=== PATIENT | male | born 1960 | race Caucasian/White ===

== ENCOUNTER 2025-08-11 22:29 | Inpatient (IN) | payer BC, SELFPAY ==
[2025-08-11 22:30] VITALS: BP 132/64; PULSE 68; RESP 18; TEMP 36.1; O2SAT 99; BMI 28.7
--- NOTE | 2025-08-11 23:04 | CT_ITS ---
PROCEDURE: ABDOMEN/PELVIS W IV CONT ONLY 08/11/2025 REASON FOR EXAM: ABD PAIN TECHNIQUE: Procedure Code: [id number] Modality: CT Procedure: ABDOMEN/PELVIS W IV CONT ONLY Coronal and Sagittal reconstruction series were provided. CONTRAST: VOLUME: mL One or more dose reduction techniques were used (e.g., Automated exposure control, adjustment of the mA and/or kV according to patient size, use of iterative reconstruction technique. FINDINGS: The visualized lung bases are clear. A well-circumscribed round low-density within the right lobe of the liver likely represents a cyst. The gallbladder is hydropic, measuring 11.4 cm in length, with gallbladder wall thickening. These findings are concerning for acute cholecystitis. Mild wall thickening of the distal transverse, descending, and proximal sigmoid colon, concerning for mild colitis. Several diverticula are seen within the sigmoid colon without inflammatory changes of the adjacent mesentery to suggest diverticulitis. No evidence of a bowel obstruction. The appendix is visualized and normal-appearing. A nonobstructing 3 mm stone is noted within the left renal pelvis. Mild atherosclerotic calcifications. No other acute abdominal or pelvic process is identified. No acute osseous abnormality. Very mild thoracolumbar spondylosis. CT/Abdomen/Pelvis W IV Cont ONLY IMPRESSION: Hydropic gallbladder with gallbladder wall thickening, concerning for acute cho lecystitis. Please correlate clinically. Mild wall thickening of the distal transverse, descending, and proximal sigmoid colon, concerning for mild colitis. Sigmoid diverticulosis without CT evidence of diverticulitis. Nonobstructing 3 mm left nephrolithiasis. Reading Location: [id number]
[2025-08-11 23:11] LABS: Hematocrit 43.2 % (40-54); Hemoglobin 14.6 g/dL (13.0-16.5); Immature Granulocytes Count 0.040 X10^3/uL (0.0-0.0); Mean Corp Hgb Conc 33.8 g/dL (32-36); Mean Corpuscular Volume 88.5 fL (80-94); Mean Platelet Vol. 9.7 fl (6.2-12.0); NRBC Flagged by Analyzer 0 % (0-5); Platelet Count 266 K/mm3 (150-450); RBC Distribution Width CV 12.5 % (11.6-14.6); RBC Distribution Width SD 40.7 fl (35.1-43.9); Red Blood Count 4.88 M/mm3 (4.6-6.2); White Blood Count 11.1 K/mm3 (4.4-11.0)
[2025-08-11] MEDS: 0.9% Normal Saline (1000mL) 1,000 ML 999 ML IV (23:15)
[2025-08-11 23:27] VITALS: O2SAT 79
[2025-08-11 23:32] LABS: AST(SGOT) 22 U/L (<=37); Alanine Aminotransfer ALT/SGPT 29 U/L (<=46); Albumin, Serum 4.1 g/dL (3.4-4.8); Alkaline Phosphatase 125 U/L (40-129); Anion Gap 11 (5-15); BUN 21 mg/dL (4-19); BUN/Creat Ratio 18.1 RATIO (10-20); Bilirubin, Direct 0.27 mg/dL (0.00-0.30); Calcium,Total 9.6 mg/dL (7.6-11.0); Carbon Dioxide 26.5 mmol/L (21.0-32.0); Chloride 100 mmol/L (98-108); Estimated Creatinine Clearance 69.51 ml/min (50-250); Globulin 3.2 g/dL (2.2-4.2); Glucose 132 mg/dL (70-99); Lipase 50 U/L (13-75); Potassium 3.9 mmol/L (3.3-5.1)
[2025-08-12] VITALS (16 sets, daily range): BP systolic 120–146; BP diastolic 58–90; PULSE 64–81; RESP 12–18; TEMP 36.2–36.8; O2SAT 92–100; BMI 28.3
--- NOTE | 2025-08-12 00:56 | EX.ED.DYSGE1 ---
HPI History of Present Illness Chief Complaint: Abd Pain Informant: patient and spouse/S.O. Narrative Narrative: Patient is a 65-year-old male with past medical history of psoriasis however he takes no medication for it. He states on Thursday he had a late lunch/early dinner after a quaker event and then a few hours later developed upper abdominal pain and had bouts of vomiting. He states no one else such as his who ate at the event was sick. He states that throughout the week he was able to eat and drink and had occasional pain but was much improved compared to the event on Thursday. However this evening he ate and the developed increasing pain in the upper abdomen and recurrent bouts of vomiting and with the repetitive and worsening symptoms was brought in for evaluation [facility] Medical History (Updated 08/12/25 @ 03:[address] Franco Crooks, DO) Psoriasis Home Medications ?Medication ?Instructions ?Recorded ?Last Taken ?Type NK 08/11/25 Unknown History Allergy/AdvReac Type Severity Reaction Status Date / Time No Known Allergies Allergy Verified 08/11/25 22:30 Social History Smoking Status: Never smoker ROS ROS ED Constitutional Constitutional ED: Denies chills or fever(s) Eyes Eyes: Denies change in vision ENT ENT ED: Denies sore throat Cardiovascular Cardiovascular: Denies chest pain Respiratory/Chest Respiratory/Chest: Denies cough or dyspnea Gastrointestinal Gastrointestinal: Reports abdominal pain, nausea and vomiting; Denies diarrhea Genitourinary Genitourinary ED: Denies dysuria Musculoskeletal Musculoskeletal: Denies myalgias Integumentary Reports rash and other Details: Chronic rash secondary to psoriasis Neurologic Neurologic: Denies headache(s) Hematologic/Lymphatic Hematologic/Lymphatic: Denies easy bleeding or easy bruising EXAM Physical Exam Const Vital Signs: 08/11/25 22:30 08/11/25 23:27 Temperature 96.9 F L Temperature Source Temporal Pulse Rate 68 Respiratory Rate 18 Blood Pressure 132/64 H Blood Pressure Mean 86 Pulse Ox 99 79 Oxygen Delivery Method Room Air Positive well nourished and well developed General Appearance ED: well developed HEENT HEENT Narrative: Normocephalic atraumatic Eyes PERRL and EOMs intact bilaterally General Eye ED: Negative for scleral icterus Neck supple Neck Narrative: No nuchal rigidity or meningeal signs noted Resp normal respiratory effort and clear to auscultation bilaterally Cardio regular rate and regular rhythm Rate: other Other Details: Heart is regular rate and rhythm without murmurs rubs or gallops Radial and carotid pulses are equal and symmetric GI GI Narrative: Abdomen is soft with slight distention noted. Bowel sounds are hypoactive. There is a reducible ventral hernia present. There is pain with palpation in the midepigastric and right upper quadrant region but greatest in the right upper quadrant. Positive Stevens sign. No pulsatile mass. No peritoneal signs. No fluid wave Auscultation: hypoactive bowel sounds Palpation: soft Back/Spine no CVA tenderness Extremity normal to inspection Neuro oriented x3, CN's II-XII intact bilaterally and no sensory deficits noted Sensorium / Orientation: alert Motor Exam: strength 5/5 throughout Psych mental status grossly normal Skin Skin Narrative: Patient has psoriatic plaques present throughout his body consistent with history of psoriasis but no secondary findings of General Skin Exam: Negative for jaundice MDM MDM MDM Narrative Medical decision making narrative: Patient arrived to the ER with stable vitals. With patient reporting nausea and vomiting mainly after eating there is concern for biliary colic versus acute cholecystitis versus pancreatitis. Patient also could have a potential ileus or small bowel obstruction secondary to an incarcerated hernia. Secondary to this concern basic labs were obtained along with a CT scan with IV contrast. Labs revealed no clinically significant findings as lactic acid is normal liver enzymes are not elevated and lipase is normal. The CT scan though however showed a thickened gallbladder wall concerning for acute cholecystitis. This would correlate with his symptoms and the fact that he has significant pain in the right upper quadrant.. Secondary to this I discussed the case with general surgeon on-call Dr. Odonnell. With the patient's history and exam he does have concern that this truly is acute cholecystitis so he recommends a dose of IV antibiotics at this time as well as admission to his service so that he can evaluate the patient in the morning and also obtain a potential ultrasound or HIDA scan if needed. This plan of care was discussed with the patient and his who are agreeable to it and therefore will be admitted for further observation at this time History & Record Review Discussion w/independent historian: Patient and Significant other Lab Data Attestation: I reviewed the patient's lab results. Labs: Laboratory Results - last 24 hr 08/11/25 08/11/25 22:45 23:23 WBC 11.1 H RBC 4.88 Hgb 14.6 Hct 43.2 MCV 88.5 MCH 29.9 MCHC 33.8 RDW Std Deviation 40.7 RDW Coeff of Griffin 12.5 Plt Count 266 MPV 9.7 Immature Gran % (Auto) 0.400 Neut % (Auto) 70.3 H Lymph % (Auto) 17.0 L [place] % (Auto) 9.0 Eos % (Auto) 2.8 Baso % (Auto) 0.5 Absolute Neuts (auto) 7.8 H Absolute Lymphs (auto) 1.88 Nucleated RBC % 0 Sodium 138 Potassium 3.9 Chloride 100 Carbon Dioxide 26.5 Anion Gap 11 BUN 21 H Creatinine 1.18 Estim Creat Clear Calc 69.51 Est GFR (MDRD) Non-Af 69 BUN/Creatinine Ratio 18.1 Glucose 132 H Lactic Acid 1.0 Calcium 9.6 Total Bilirubin 0.64 Direct Bilirubin 0.27 AST 22 ALT 29 Alkaline Phosphatase 125 Total Protein 7.3 Albumin 4.1 Globulin 3.2 Lipase 50 Radiography Diagnostic Testing: Clinical Impression(s) from Imaging Studies Abdomen/Pelvis CT 08/11/25 23:04 IMPRESSION: Hydropic gallbladder with gallbladder wall thickening, concerning for acute cholecystitis. Please correlate clinically. Mild wall thickening of the distal transverse, descending, and proximal sigmoid colon, concerning for mild colitis. Sigmoid diverticulosis without CT evidence of diverticulitis. Nonobstructing 3 mm left nephrolithiasis. Reading Location: [id number] Management Discussion w/another healthcare provider: Latexer Discharge Plan Dx/Rx/DC Orders Clinical Impression: Acute cholecystitis, Nausea and vomiting, Psoriasis Disposition Disposition: Acute Care Hospital [facility] Discharge Date/Time: 08/12/25 01:32
[2025-08-12] MEDS: HYDROmorphone 0.5 MG/0.5 ML SYRINGE IV (01:02)
--- NOTE | 2025-08-12 01:05 | EKG12_ITS ---
Test Reason : DYSRHYTHMIA Blood Pressure : */* mmHG Vent. Rate : 72 BPM Atrial Rate : 72 BPM P-R Int : 194 ms QRS Dur : 86 ms QT Int : 392 ms P-R-T Axes : 72 40 39 degrees QTcB Int : 429 ms Normal sinus rhythm with sinus arrhythmia Normal ECG Confirmed by MANNIE HINKLE, AMIRAH ([id number]), editor magazine RONEN GARCIA ([id number]) on 08/14/2025 1:35:53 PM Referred By: Confirmed By: AMIRAH CHAND MD
[2025-08-12] MEDS: Piperacil/Tazobactam 3.375 GM in 0.9% Normal Saline (50mL MB+) 50 ML IV ×3 (01:07→21:24)
[2025-08-12] MEDS: Dextrose 5%/0.9% NaCl 1,000 ML 90 ML IV ×2 (02:00→17:43)
--- NOTE | 2025-08-12 08:05 | CASEMGMT ---
Dx: Cholecystitis LACE: 1 6-Clicks: 24 Medical record reviewed and patient evaluated for identification of discharge planning needs. Based on this review, at this time criteria are not present to indicate a need for discharge planning. Will remain available to assist with discharge planning needs as identified or requested.
--- NOTE | 2025-08-12 10:56 | PCM.HP.STD ---
HPI - General General Date of Admission: 08/12/25 Date of Service: 08/12/25 Chief Complaint: Right upper quadrant pain HPI Narrative LUIS FERNANDO TIAN, is a 65 M who presented overnight to the [facility] emergency department with epigastric and right upper quadrant pain. Patient states that he had similar pain that began about a week ago after eating a meal I believe at a restoration function. This pain resolved however he now admits that he really did not feel completely normal for the most of the week. Last night he had dinner with his and within a couple of hours of eating, he developed same epigastric and right upper quadrant pain. This pain persisted and eventually prompted his visit to the emergency room. This pain has been associated with nausea and vomiting. Patient was seen evaluate by the ER staff. His blood work was unremarkable. CT scan was performed and showed gallbladder wall thickening and distention consistent with gallbladder hydrops. Due to pain, patient was subsidy admitted. He was placed on antibiotics and kept NPO. This morning he states that his pain is greatly improved. [facility] Medical History Psoriasis Home Medications ?Medication ?Instructions ?Recorded ?Last Taken ?Type NK 08/11/25 Unknown History Allergy/AdvReac Type Severity Reaction Status Date / Time No Known Allergies Allergy Verified 08/11/25 22:30 no significant family history no surgical history Social History Smoking Status: Never smoker Vital Signs Vital Signs Vital Signs: 08/11/25 22:30 08/11/25 23:27 08/12/25 01:00 Temperature 96.9 F L Temperature Source Temporal Pulse Rate 68 75 Pulse Strength Respiratory Rate 18 18 Respiratory Effort Respiratory Depth Respiratory Pattern Blood Pressure 132/64 H 136/78 H Blood Pressure Mean 86 97 Blood Pressure Source Blood Pressure Position Blood Pressure Location Pulse Ox 99 79 Oxygen Delivery Method Room Air 08/12/25 01:14 08/12/25 01:48 08/12/25 02:04 Temperature 98.0 F 97.9 F Temperature Source Oral Pulse Rate 74 71 Pulse Strength Respiratory Rate 18 18 Respiratory Effort Normal Non-Labored Respiratory Depth Normal Respiratory Pattern Normal Blood Pressure 136/78 H 140/79 H Blood Pressure Mean 97 99 Blood Pressure Source Monitor Blood Pressure Position Semi-Fowlers Blood Pressure Location Left Arm Pulse Ox 99 94 Oxygen Delivery Method Room Air Room Air 08/12/25 08:38 08/12/25 10:00 Temperature 97.7 F L Temperature Source Oral Pulse Rate 64 Pulse Strength Normal (2+) Respiratory Rate 15 Respiratory Effort Respiratory Depth Respiratory Pattern Blood Pressure 124/64 H Blood Pressure Mean 84 Blood Pressure Source Monitor Blood Pressure Position Supine Blood Pressure Location Left Arm Pulse Ox 94 Oxygen Delivery Method Room Air Weight Weight: 191 lb 9.307 oz Body Mass Index (BMI) 28.3 Physical Exam Narrative The patient is alert and oriented x 3. He is in no acute distress. Head is normocephalic and atraumatic. Pupils are equal round and reactive to light. Abdomen is soft and nondistended. Really minimal epigastric and right upper quadrant discomfort at this point. No rebound or guarding Results Medical Records Data Attestation: I reviewed the patient's medical records Lab / Micro Data Attestation: I reviewed the patient's lab results. 08/11/25 22:45 08/11/25 22:45 Labs: Laboratory Results - last 24 hr 08/11/25 22:45: WBC 11.1 H, RBC 4.88, Hgb 14.6, Hct 43.2, MCV 88.5, MCH 29.9, MCHC 33.8, RDW Std Deviation 40.7, RDW Coeff of Griffin 12.5, Plt Count 266, MPV 9.7, Immature Gran % (Auto) 0.400, Neut % (Auto) 70.3 H, Lymph % (Auto) 17.0 L, [place] % (Auto) 9.0, Eos % (Auto) 2.8, Baso % (Auto) 0.5, Absolute Neuts (auto) 7.8 H, Absolute Lymphs (auto) 1.88, Nucleated RBC % 0, Sodium 138, Potassium 3.9, Chloride 100, Carbon Dioxide 26.5, Anion Gap 11, BUN 21 H, Creatinine 1.18, Estim Creat Clear Calc 69.51, Est GFR (MDRD) Non-Af 69, BUN/Creatinine Ratio 18.1, Glucose 132 H, Calcium 9.6, Total Bilirubin 0.64, Direct Bilirubin 0.27, AST 22, ALT 29, Alkaline Phosphatase 125, Total Protein 7.3, Albumin 4.1, Globulin 3.2, Lipase 50 08/11/25 23:23: Lactic Acid 1.0 Imaging Radiology Impression Abdomen/Pelvis CT 08/11/25 23:04 IMPRESSION: Hydropic gallbladder with gallbladder wall thickening, concerning for acute cholecystitis. Please correlate clinically. Mild wall thickening of the distal transverse, descending, and proximal sigmoid colon, concerning for mild colitis. Sigmoid diverticulosis without CT evidence of diverticulitis. Nonobstructing 3 mm left nephrolithiasis. Reading Location: [id number] Assessment & Plan Assessment/Plan (1) Acute cholecystitis: PLAN: Plan The patient is a 65-year-old male with epigastric and right upper quadrant pain and imaging findings concerning for gallbladder hydrops/acute cholecystitis. I have offered him laparoscopic cholecystectomy as treatment. We discussed the details of the planned procedure including risks benefits and alternatives. He and his agreed to proceed. Surgery will occur later this morning. He will remain n.p.o. for now. Continue IV Zosyn Charges/Coding Visit Charges Inpatient E&M: 85049 Init Hosp L3
--- NOTE | 2025-08-12 12:15 | NURSING ---
1200-pt off unit via bed for surgery
--- NOTE | 2025-08-12 12:20 | GALL_PTH ---
PATIENT: LUIS FERNANDO TIAN LOC: MS3 U#:[id number] AGE/SX: 65/M ROOM: [facility] RE08/12/[address]: Dr. Harsha Odonnell MD : 1960 BED: 1 DIS: 08/15/2025 SPEC #: [id number] RECD: 08/14/25 07:17 STATUS: RODRIGUEZ REQ #: [id number] SUSAN: 08/12/25 12:[address]: Harsha Odonnell DEPT: SURGICAL PATHOLOGY RECD BY: Mariel Unger ENTERED: 08/14/25 11:37 SP TYPE: SARI TATE DR: Dr. Jeevan Narayanan, DO No Primary Care Phys PANTERA FelizC Tali Fernando NP-C CHELSEY Avelar Tissues: Gallbladder, NOS Procedures: Surgery Specimen Level III HEADER OPERATION: Laparoscopic, cholecystectomy with IOC, umbilical hernia repair PRE-OP DIAGNOSIS: Acute cholecystitis TISSUE SUBMITTED: A- Gallbladder MICROSCOPIC DIAGNOSIS A. Gallbladder, cholecystectomy: * Acute and chronic cholecystitis with mucosal erosion and hemorrhage * Cholelithiasis MICROSCOPIC DESCRIPTION Slides are reviewed. GROSS DESCRIPTION A. A. Received in formalin labeled with the patient's name and date of . Designated as gallbladder is a 9.2 x 3.2 x 3.2 cm pink-ingram barrios, focally disrupted and distended gallbladder with attached patent cystic duct (inked black, shaved). A lymph node is present. Opening reveals a 3.7 cm yellow, bosselated, crystalline cholelith. The mucosa is light brown-green to red and granular with patchy necrosis and a maximum wall thickness of 0.8 cm. Cholesterolosis is not present. Body Service Team Member sections are submitted in 2 cassettes as follows: A1: Margin, lymph node, cross-sectionA2: Cross-sections CO 08/15/2025PT:[id number]
[2025-08-12] MEDS: Lactated Ringers 1,000 ML 15 ML IV (12:28)
--- NOTE | 2025-08-12 12:44 | PCM.PRE.AN2 ---
ASA Classification* ASA Classification ASA Classification: 1 and E Assessment & Plan Anesthesia* Anesthesia Assessment Anesthesia Assessment: Discussed sedation and/or anesthesia options, risks, benefits, and alternatives with patient/parents/legal guardian/POA. Questions invited. The patient/parents/legal guardian/POA seems to understand and agrees to proceed with anesthesia plan. Reviewed the physical assessment, medical history, allergy history and patient home medications list prior to surgery/procedure/anesthetic and documented any changes. Performed airway and anesthesia risk assessments. Anesthesia Type Anesthesia Type: General History Source History Obtained from:: Patient, Chart and Significant Other (Spouse and son at bedside) Anesthesia Focused Assessment* Temperature: 97.1 F Pulse Rate: 70 Blood Pressure: 126/68 Respiratory Rate: 16 Pulse Ox: 97 Oxygen Delivery Method: Room Air Airway Assessment Mouth opens: >3 cm Mallampati Score: II Teeth Condition: Intact Neck Range of motion (ROM): Full ROM Labs Anesthesia Preop lab: CBC WBC, (4.4-11.0) 11.1 K/mm3 H 08/11/25, 22:45 RBC, (4.6-6.2) 4.88 M/mm3 08/11/25, 22:45 Hgb, (13.0-16.5) 14.6 g/dL 08/11/25, 22:45 Hct, (40-54) 43.2 % 08/11/25, 22:45 Plt Count, (150-450) 266 K/mm3 08/11/25, 22:45 CHEMISTRY Potassium, (3.3-5.1) 3.9 mmol/L 08/11/25, 22:45 Sodium, (133-145) 138 mmol/L 08/11/25, 22:45 BUN, (4-19) 21 mg/dL H 08/11/25, 22:45 Creatinine, (0.70-1.20) 1.18 mg/dL 08/11/25, 22:45 Glucose, (70-99) 132 mg/dL H 08/11/25, 22:45 COAG Pre-Assessment Diagnosis/Proposed Procedure Planned Operative Procedure(s): Laparoscopic cholecystectomy Anesthesia History Anesthesia History - supervisor compounding and finishing: Anesthesia History - supervisor compounding and finishing Hx Hospitalization Any Problems With Anesthesia No 08/12/25 11:14 Cholinesterase deficiency No 08/12/25 11:14 You/Your Family Experience No 08/12/25 11:14 fever (hyperthermia) with Relationship Recent Exposure to Contagious No 08/12/25 11:14 Disease Does patient have nerve No 08/12/25 11:14 stimulator Patient instructed to have device shut off --Does patient have Pacemaker No 08/12/25 11:06 or ICD? When Was Last Pacemaker Check QUESTION #4 FULL TEXT: You/Your Family Experience fever (hyperthermia) with Anesthesia Last Oral Intake Last Oral intake: Last Oral Intake NPO since 00:01 08/12/25 11:06 Meds taken in AM with sips of No 08/12/25 11:06 water? Meds patient instructed to take am of surgery PONV PONV - supervisor compounding and finishing: PONV - supervisor compounding and finishing Female HX of Motion Sickness HX of N/V After Surgery Non-Smoker Duration of Surgery greater than 60 minutes Number of Risk Factors PONV Score Height & Weight Height & Weight: Anesthesia: Height & Weight Height 5 ft 8.9 in 08/12/25 11:06 Weight: 86.9 kg 08/12/25 11:06 Body Mass Index (BMI) 28.3 08/12/25 11:06 Respiratory Assessment Respiratory Assessment - supervisor compounding and finishing: Respiratory Tract Infection Hx - supervisor compounding and finishing Hx Respiratory Tract Infection Yes: started around 08/12/25 11:14 halloween STOP Sleep Apnea STOP Sleep Apnea - supervisor compounding and finishing: STOP Sleep Apnea - supervisor compounding and finishing Hx Hypertension No 08/12/25 01:59 Hx Sleep Apnea No 08/12/25 01:59 CPAP BIPAP Do you snore loudly (louder No 08/12/25 01:59 than talking or can be heard Do you often feel tired/ No 08/12/25 01:59 fatigued/ sleepy during daytime? Has anyone observed you stop No 08/12/25 01:59 breathing during sleep? STOP Results Negative 08/12/25 01:59 QUESTION #5 FULL TEXT : Do you snore loudly (louder than talking or can be heard through closed doors)? Tobacco Use History Tobacco Use History - supervisor compounding and finishing: Tobacco Use History - supervisor compounding and finishing Tobacco Use Smoking Status Never smoker 08/12/25 01:59 Hx Tobacco Use No 08/12/25 01:59 Years Smoking Packs Smoked per Day Smoking Cessation Date was within the last 15 years Hx Smoking Cessation Date Hx Smoking Cessation Counseling Hematologic Medial History Hematologic Hx - supervisor compounding and finishing: Hematologic Medical Hx - dictaphone mechanic Hx of Blood Transfusion No 08/12/25 01:59 Hx of Transfusion in last 3 No 08/12/25 01:59 Months Date of Last Transfusion (if within last 3 months) Ever experience any problems No 08/12/25 01:59 with transfusion(s)? Specify any problems Hx of Preganancy in last 3 N/A 08/12/25 01:59 Months Nurse Filling Out Transfusion CSIGNORIN 08/12/25 01:59 & Questions: Date: 08/12/25 08/12/25 01:59 Time: 02:01 08/12/25 01:59 Patient unable to answer at this time (ie. confused, unrespo /Reproduction History /Reproductive History - supervisor compounding and finishing: /Reproductive Hx- supervisor compounding and finishing Hx Now No 08/12/25 11:14 Gestational Age (in weeks): EDC: Hx Hx Para Hx Section SAB Does the father of the baby or his family experience fever w Father of the baby Malignant Hypertension history comment Active Medications Active Medications: Current Medications Generic Name Dose Route Start Last Admin Trade Name Freq PRN Reason Stop Dose Admin Acetaminophen 1,000 mg 08/12/25 06:00 08/12/25 06:15 Acetaminophen 500 Mg Tablet PO Not Given Q8 BRODY Dextrose/Sodium Chloride 1,000 mls @ 90 mls/hr 08/12/25 01:41 08/12/25 12:13 Dextrose 5%/0.9% Nacl IV 0 mls/hr .[id number] BRODY Infusion Piperacillin Sod/Tazobactam 50 mls @ 12.5 mls/hr 08/12/25 06:00 08/12/25 10:15 Sod 3.375 gm/ Sodium Chloride IV Infused Q8 BRODY Infusion Sodium Chloride 250 mls @ 15 mls/hr 08/12/25 01:42 IV .[id number] PRN Saline Flush Sodium Chloride 250 mls @ 15 mls/hr 08/12/25 01:42 IV .[id number] PRN Additional IVPB Infusion Lactated Ringer's 1,000 mls @ 15 mls/hr 08/12/25 12:30 08/12/25 12:28 IV 15 mls/hr .Q48H BRODY Administration Morphine Sulfate 2 - 4 mg 08/12/25 01:41 Morphine 2 Mg/Ml Syringe IV Q3H PRN PRN Pain Score 6-10 Morphine Sulfate 2 - 4 mg 08/12/25 01:44 Morphine 4 Mg/Ml Syringe IV Q3H PRN PRN Pain Score 6-10 Ondansetron HCl 4 mg 08/12/25 01:41 Ondansetron 4 Mg/2 Ml Vial IV Q8H PRN PRN NAUSEA/VOMITING Oxycodone HCl 5 mg 08/12/25 01:41 Oxycodone 5 Mg Tablet PO Q4H PRN PRN Pain Score 4-10 Sodium Chloride 10 - 40 ml 08/12/25 01:42 0.9% Saline Lock 10 Ml Syringe IV UD PRN SALINE FLUSH PFSH Medical History Psoriasis Home Medications ?Medication ?Instructions ?Recorded ?Last Taken ?Type NK 08/11/25 Unknown History Allergy/AdvReac Type Severity Reaction Status Date / Time No Known Allergies Allergy Verified 08/11/25 22:30 Family History no significant family his Surgical History no surgical history Social History Smoking Status: Never smoker Review of Systems (Anesthesia) ROS Narrative System reviewed and no additional complaints, except as documented.
[2025-08-12] MEDS: fentaNYL 100 MCG/2 ML Ampul IV (12:56)
[2025-08-12] MEDS: Midazolam 2 MG/2 ML Syringe IV (12:56)
[2025-08-12] MEDS: Lidocaine 1% (5 ml sdv) 5 ML Vial IV (12:59)
--- NOTE | 2025-08-12 14:00 | RAD_ITS ---
PROCEDURE: CHOLANGIOGRAM/ O R,INITIAL 08/12/2025 REASON FOR EXAM: LAP CHERYL WITH GRAMS TECHNIQUE: Procedure Code: RADCHO Modality: DX Procedure: CHOLANGIOGRAM/ O R,INITIAL COMPARISON: Prior CT FINDINGS: Imaged from intraoperative fluoroscopy. Fluoroscopy performed by Dr. Odonnell for a total reference air kerma of 4.4 mGy. Catheter in the cystic duct remnant. Excellent opacification of the common bile duct, common hepatic duct and intrahepatic ducts. Contrast is noted extending into the intraperitoneal cavity. Filling defects noted in the common bile duct on all submitted images. RAD/Cholangiogram/ O R,Initial IMPRESSION: Cholecystectomy with possible choledocholithiasis. Reading Location: [id number]
[2025-08-12] MEDS: Bupiv/Epi 0.25% 30 ML Vial (16:00)
--- NOTE | 2025-08-12 16:30 | PCM.POST.ANE ---
Anesthesia: Postop Eval I Current Vital Signs Temperature: 97.6 F Pulse Rate: 81 Blood Pressure: 146/60 Respiratory Rate: 14 Pulse Ox: 92 Oxygen Delivery Method: Room Air Assessment Airway patent: Yes Spontaneous unlabored respirations: Yes Mental status: Awake and Calm nausea: No Vomiting: No Anesthesia Complication: No Fluid Hydration Crystalloid volume administer (ml): 2,200 Total IV fluid infused: 2,200 Progress Note Post-operative progress note: Doing very well in PACU. Denies any complaints. Denies pain. Anesthesia document: Postop Eval 1 completed: Yes
--- NOTE | 2025-08-12 16:43 | PCM.POSTANE2 ---
Anesthesia Postop Eval I Sum Postop Eval Completion status Anesthesia document: Postop Eval 1 completed: Yes Anesthesia Postop Eval I Summary Anesthesia Postop Eval I Summary: Anesthesia Postop Eval I: Assessment Summary Airway patent Yes 08/12/25 16:31 Spontaneous unlabored Yes 08/12/25 16:31 respirations Mental status Awake,Calm 08/12/25 16:31 nausea No 08/12/25 16:31 Vomiting No 08/12/25 16:31 Anesthesia Postop Eval I: Fluid Summary Crystalloid volume administer 2,200 08/12/25 16:31 (ml) Colloids volume administered ( ml) Blood Product volume administered (ml) Total IV fluid infused 2,200 08/12/25 16:31 Anesthesia Postop Eval I: Summary Notes Anesthesia Complication No 08/12/25 16:31 Anesthesia Complication Comment: Post-operative progress note Doing very well in 08/12/25 16:31 PACU. Denies any complaints. Denies pain. Anesthesia: Postop Eval II Evaluation Mental status: Awake and Calm Pain Level: 1 nausea: No Vomiting: No Progress Note Post-operative progress note: Doing very well in PACU. Denies any complaints. and son at bedside. All questions answered. Complications Anesthesia Complication: No
--- NOTE | 2025-08-12 17:03 | PCM.OPRPT ---
Multi Select Codes Digestive Digestive CPT Codes: 36428 Laparo cholecystectomy/graph and 43048 RPR AA HRN 1ST < 3 CM RDC Operative Report (Standard) Operative Information Date of Procedure: 08/12/25 Pre-Operative Diagnosis: Acute cholecystitis Post-Operative Diagnosis: Acute cholecystitis with probable choledocholithiasis Surgery/Procedure Performed: 1. Laparoscopic cholecystectomy with intraoperative cholangiograms 2. Umbilical hernia repair gasket maker: Yes Topographical Drafter: Nallely Pope Tasks completed by assistant professor of english: Closing, Trocar, Retracting and Other Type of Anesthesia: General and Local RN Documented Start/Stop Times: Operation Date: 08/12/25 12:20 Case Time Into Pre-Op 08/12/25 12:11 Out of Pre-Op 08/12/25 12:47 Anesthesia Start 08/12/25 12:50 Into Room 08/12/25 12:50 Procedure Start 08/12/25 13:17 Procedure End 08/12/25 16:14 Anesthesia End 08/12/25 16:19 Out of Room 08/12/25 16:19 Into Recovery 08/12/25 16:20 Procedure Start Time: 13:17 Procedure Stop Time: 16:14 Select all DRAINS/GRAFTS/IMPLANTS that apply: Drains Drain details: 10 Arabic flat ANGELA drain x 1 Special Medications: Zosyn IV Estimated Blood Loss: 50 mL Specimen collected: Yes Description of specimen(s) removed: Gallbladder Description of surgery: The patient is a 65-year-old male who presented to the emergency department at [facility] overnight with epigastric abdominal pain. He states that this began last night after dinner however in further discussions, it sounds as though he has had pain as well as chills off and on for the past week. With further discussions, it sounds as though he may have even been having issues off and on for 6 months or more. He was seen in the emergency department last night. Blood work was unremarkable however CT scan showed a thickened hydropic gallbladder. I recommended a laparoscopic cholecystectomy with cholangiograms. Patient also had an umbilical hernia which I agreed to repair as well. We discussed the details of the planned procedure as well as the risks, benefits as well as alternatives to treatment. We did specifically talk about possibility of soft stools or diarrhea as well as potential injuries including bile duct injuries and other intra-abdominal injuries. We certainly felt that benefits of surgery would outweigh any risks and he wished to proceed. The patient was brought to the operative room today following informed consent. Antibiotics were already being given on the floor. He was placed supine on the operative table with arms outstretched and arm boards. General endotracheal anesthesia was induced. Once adequately sedated, the abdomen was then prepped and draped in the usual sterile manner. A 5 mm incision was made just above the umbilicus for which a 5 mm trocar was placed through the fat-containing umbilical hernia. The abdomen was then fully insufflated with CO2 gas. 5 mm 0 degree scope was inserted. There were no signs of bowel or vascular injury. Next two 5 mm trocars were placed under direct visualization on the right side of the abdomen. A 10 mm trocar was placed under direct visualization in the epigastric area. The patient was then placed in reverse Trendelenburg positioning with some roll to the left to help facilitate exposure to the gallbladder. It was immediately noted that the gallbladder was completely encased/in shrouded with omental fat. This was very tightly adherent to the gallbladder. This was clearly more than an acute episode of cholecystitis and was probably more so chronic evidence of multiple episodes of cholecystitis. The fatty tissue was carefully taken down off of the fundus of the gallbladder. This was performed using a Maryland dissector as well as electrocautery on the [place] as well as on a J-hook. Eventually this was able to all be swept down so that the lower aspect/ infundibulum of the gallbladder could be identified. There was some bowel adherent to the area as well this was all carefully swept inferiorly off of the infundibulum of the gallbladder. There is still significant amount of acute on chronic inflammation present.. Hook electrocautery was then used to attempt to incise the peritoneum on either side of the gallbladder to help mobilize the gallbladder away from the liver to facilitate exposure. This was quite difficult as the inflammatory rind was quite thick all around the gallbladder. This did however improve some exposure. Careful dissection of the infundibulum was performed. This was performed in a lateral to medial direction and in doing so I was able to identify the cystic duct as it entered the gallbladder. This was dissected mostly on the lateral aspect. The medial aspect of the infundibulum was still quite densely consolidated with adhesions. Very careful painstaking dissection was performed and eventually what appeared to be the cystic artery was seen running directly parallel to the cystic duct. I was able to use blunt dissection with a Kitner as well as a suction tip catheter to develop a plane between the duct and the artery. The artery was dissected around circumferentially. The diameter of the artery was moderately larger than a typical of cystic artery. In order to further identify the cystic duct and establish a critical view of safety, I felt that it was necessary to transect the cystic artery. This was performed by placing 10 mm clips on either side and then transecting. Upon doing so there was some backbleeding on the gallbladder side of the artery suggesting an additional branch. This was clipped on the gallbladder side. Further dissection did reveal another branch going to the gallbladder. This was left in place initially. Attention was turned back towards identifying the cystic duct and trying to establish a critical view of safety. I was able to dissect a definitive plane around the cystic duct and was able to get the lower aspect of the gallbladder off of the lower part of the cystic plate to the point where we confidently felt that the cystic duct was accurately being identified. At this point a cholangiogram was performed. A 10 mm clip was placed on the gallbladder side of the cystic duct. A cholangiogram catheter was then inserted through a ductotomy and the cystic duct. It was fairly challenging keeping the saline and contrast from spilling out around the duct anatomy. Nevertheless cholangiograms were carefully performed and it appeared that there was a common bile duct obstruction from what appeared to be sludge or stones. It was appreciated that the cystic duct appeared fairly short. There was really minimal distance from the duct automate to what I felt was most likely of the common bile duct. Due to the amount of inflammation, I felt that further dissection close to the common bile duct might not be prudent and so a solitary 10 mm clip was placed on the cystic duct stump and this was then transected. At this point, the gallbladder was carefully cauterized off the undersurface of the liver.. The dissection plane was not well-defined due to the chronic inflammation. There was some oozing from the liver bed and places but this responded well to electrocautery. Once the gallbladder was free, it was placed into a bag and brought out through the 10 mm trocar site. The 10 mm trocar was replaced. The liver bed was copiously irrigated and cauterized in a few areas to ensure excellent hemostasis. A 10 Arabic ANGELA drain was inserted and brought out through one of the right sided 5 mm trocar sites. There was no evidence of bowel or vascular injury. No evidence of bile leak at the completion of the procedure. The ANGELA drain was sutured to the skin. The trocars were then removed which allowed insufflation to escape. Local anesthetic was injected into each of the incisions. The umbilical hernia repair was then performed by making a curvilinear incision around the superior aspect of the umbilicus. Bovie electrocautery was then used dissect down through subcutaneous tissues. The fascial defect was about a centimeter and a half. This contained fat. The fat was freed up and reduced. The fascial defect was then closed using 0 Nurolon sutures placed in an interrupted manner. This closed the fascial defect nicely. 3-0 Vicryl was used to reapproximate the base of the umbilicus to the underlying fascia and also to reapproximate the subdermal layer at the skin level. 4-0 Vicryl was then used to close the skin. Dermabond was applied to all of the skin incisions. The patient was then awakened from anesthesia and taken to recovery in good condition I spoke to Dr. Narayanan from GI following the surgery and informed him of the consult for ERCP due to the suspected CBD stones. Surgical Findings: Probable common bile duct stones/sludge Complications Complications: No Admit VTE Documentation VTE Present on Admission: No VTE Mechan Device Prophylaxis: SCD's VTE Pharm Prophylaxis ordered?: No Reason prophylaxis not ordered: Treatment Not Indicated
[2025-08-12 20:09] LABS: AST(SGOT) 230 U/L (<=37); Alanine Aminotransfer ALT/SGPT 158 U/L (<=46); Albumin, Serum 3.4 g/dL (3.4-4.8); Alkaline Phosphatase 144 U/L (40-129); Anion Gap 9 (5-15); BUN 11 mg/dL (4-19); BUN/Creat Ratio 11.6 RATIO (10-20); Calcium,Total 8.5 mg/dL (7.6-11.0); Carbon Dioxide 24.5 mmol/L (21.0-32.0); Chloride 103 mmol/L (98-108); Estimated Creatinine Clearance 83.34 ml/min (50-250); Globulin 2.7 g/dL (2.2-4.2); Glucose 194 mg/dL (70-99); Potassium 4.3 mmol/L (3.3-5.1)
[2025-08-13 01:22] VITALS: BP 141/82; PULSE 76; RESP 16; TEMP 36.9; O2SAT 93
[2025-08-13] MEDS: Dextrose 5%/0.9% NaCl 1,000 ML 90 ML IV ×2 (04:39→15:54)
[2025-08-13 04:54] LABS: Hematocrit 37.3 % (40-54); Hemoglobin 12.8 g/dL (13.0-16.5); Immature Granulocytes Count 0.040 X10^3/uL (0.0-0.0); Mean Corp Hgb Conc 34.3 g/dL (32-36); Mean Corpuscular Volume 89.2 fL (80-94); Mean Platelet Vol. 9.8 fl (6.2-12.0); NRBC Flagged by Analyzer 0 % (0-5); Platelet Count 229 K/mm3 (150-450); RBC Distribution Width CV 12.5 % (11.6-14.6); RBC Distribution Width SD 41.0 fl (35.1-43.9); Red Blood Count 4.18 M/mm3 (4.6-6.2); White Blood Count 10.3 K/mm3 (4.4-11.0)
[2025-08-13 05:14] LABS: AST(SGOT) 122 U/L (<=37); Alanine Aminotransfer ALT/SGPT 141 U/L (<=46); Albumin, Serum 3.4 g/dL (3.4-4.8); Alkaline Phosphatase 138 U/L (40-129); Anion Gap 9 (5-15); BUN 8 mg/dL (4-19); BUN/Creat Ratio 7.4 RATIO (10-20); Calcium,Total 8.6 mg/dL (7.6-11.0); Carbon Dioxide 26.4 mmol/L (21.0-32.0); Chloride 105 mmol/L (98-108); Estimated Creatinine Clearance 74.78 ml/min (50-250); Globulin 2.6 g/dL (2.2-4.2); Glucose 153 mg/dL (70-99); Potassium 4.1 mmol/L (3.3-5.1)
[2025-08-13] MEDS: Piperacil/Tazobactam 3.375 GM in 0.9% Normal Saline (50mL MB+) 50 ML IV ×3 (06:20→21:28)
[2025-08-13 06:24] VITALS: BP 129/64; PULSE 71; RESP 20; TEMP 36.8; O2SAT 92
[2025-08-13 08:00] VITALS: BP 114/68; PULSE 71; RESP 13; TEMP 36.8; O2SAT 93
--- NOTE | 2025-08-13 11:41 | PN.SURG_ITS ---
Subjective Subjective Patient seen and evaluated on rounds this morning. Patient seems to be doing well. He denies any significant issues or problems other than incisional pain. He states that his incisional pain is mostly in the epigastric area at the 10 mm trocar site. He has been up and ambulating. He has been tolerating a clear liquid diet thus far Objective Data Objective Data Vital Signs: Vital Signs Temp Pulse Resp BP Pulse Ox O2 Del Method O2 Flow Rate 98.3 F 71 13 114/68 93 Nasal Cannula 2 08/13/25 08:00 08/13/25 08:00 08/13/25 08:00 08/13/25 08:00 08/13/25 08:00 08/13/25 08:00 08/13/25 08:00 Oxygen Flow Rate (L/min) 2 Oxygen Delivery Method Nasal Cannula Weight: 191 lb 9.307 oz Body Mass Index (BMI) 28.3 Intake & Output: Intake and Output for Last 24 Hours 08/11/25 08/12/25 08/13/25 23:59 23:59 23:59 Intake Total 3019.5 / 3019.5 1684 / 1684 Output Total 80 / 80 710 / 710 Balance 2939.5 / 2939.5 974 / 974 Lab / Micro Data 08/13/25 03:44 08/13/25 03:44 Labs: Laboratory Results - last 24 hr 08/12/25 19:32: Sodium 136, Potassium 4.3, Chloride 103, Carbon Dioxide 24.5, Anion Gap 9, BUN 11, Creatinine 0.96, Estim Creat Clear Calc 83.34, Est GFR (MDRD) Non-Af 89, BUN/Creatinine Ratio 11.6, Glucose 194 H, Calcium 8.5, Total Bilirubin 2.22 H, AST 230 H, ALT 158 H, Alkaline Phosphatase 144 H, Total Protein 6.1, Albumin 3.4, Globulin 2.7, Albumin/Globulin Ratio 1.3 08/13/25 03:44: WBC 10.3, RBC 4.18 L, Hgb 12.8 L, Hct 37.3 L, MCV 89.2, MCH 30.6, MCHC 34.3, RDW Std Deviation 41.0, RDW Coeff of Griffin 12.5, Plt Count 229, MPV 9.8, Immature Gran % (Auto) 0.400, Neut % (Auto) 78.2 H, Lymph % (Auto) 9.8 L, [place] % (Auto) 11.4 H, Eos % (Auto) 0.1, Baso % (Auto) 0.1, Absolute Neuts (auto) 8.1 H, Absolute Lymphs (auto) 1.01, Nucleated RBC % 0, Sodium 140, Potassium 4.1, Chloride 105, Carbon Dioxide 26.4, Anion Gap 9, BUN 8, Creatinine 1.07, Estim Creat Clear Calc 74.78, Est GFR (MDRD) Non-Af 77, BUN/Creatinine Ratio 7.4 L, Glucose 153 H, Calcium 8.6, Total Bilirubin 1.39 H, AST 122 H, ALT 141 H, Alkaline Phosphatase 138 H, Total Protein 6.0, Albumin 3.4, Globulin 2.6, Albumin/Globulin Ratio 1.3 Radiography Diagnostic Testing: Radiology Impression Cholangiogram 08/12/25 14:00 IMPRESSION: Cholecystectomy with possible choledocholithiasis. Reading Location: [id number] Physical Exam Narrative He is alert and oriented x 3. He is in no acute distress. Abdomen is soft and appropriately tender. Incision sites are clean dry and intact. ANGELA drain is mostly sanguinous/bloody output however there appears that there may be some bilious tinge to the fluid. Assessment & Plan Assessment/Plan (1) Acute cholecystitis: PLAN: Plan The patient is a 65-year-old male status post a laparoscopic cholecystectomy along with umbilical hernia repair surgery for acute on chronic cholecystitis of a pretty severe nature. Intraoperative cholangiogram seemed to indicate choledocholithiasis for which GI has been consulted. The tentative plan is for ERCP sometime tomorrow. I suspect possibly a cystic duct leak as there is a slight tinge of bilious appearance to the ANGELA drain output. Patient had a very short cystic duct, and I was only able to place a solitary clip on the cystic duct stump. Additional clips could have potentially impinged on the junction with the common bile duct. Will await ERCP results to determine if cystic duct leak is indeed present. Would suspect stent will be placed at the time of ERCP anyway Continue IV Zosyn. Will advance diet to full liquid diet Will make n.p.o. for ERCP tomorrow Bilirubin as well as other LFTs are slightly elevated but seem to be trending downward.
[2025-08-13 14:30] VITALS: BP 151/72; PULSE 75; RESP 15; TEMP 36.7; O2SAT 95
--- NOTE | 2025-08-13 16:08 | CON.PCM.GI_ITS ---
HPI Consult Data Date of Consult: 08/13/25 HPI Narrative Reason for Consultation: Choledocholithiasis and possible bile leak HPI Narrative: LUIS FERNANDO TIAN, is a 65-year-old male with a history of untreated psoriasis who presented for evaluation after experiencing worsening upper abdominal pain and recurrent vomiting. Symptoms began the previous Thursday with a late lunch/early dinner after a jain event, followed a few hours later by initial onset of upper abdominal pain and vomiting. The patient reported some improvement during the week, with occasional pain but continued ability to tolerate food and drink. Symptoms acutely worsened this evening after eating, prompting the current evaluation. The patient underwent a cholecystectomy with intraoperative cholangiography (IOC) which revealed sludge and stones. Post-operatively, there is suspicion of a bile leak evidenced by biliary fluid in the ANGELA drain. Therapeutic Endoscopic Retrograde Cholangiopancreatography (ERCP) was consulted for further management of the suspected bile leak. * Labs: * Total Bilirubin: 2.22 H * AST: 230 H * ALT: 158 H * Alkaline Phosphatase: 144 H * Imaging: * CT Scan: Revealed gallbladder wall thickening and distention consistent with gallbladder hydrops. * Procedure: * Cholecystectomy with IOC performed, revealing sludge and stones. * ANGELA drain currently in place with output of biliary fluid. [facility] Medical History Psoriasis Home Medications ?Medication ?Instructions ?Recorded ?Last Taken ?Type NK 08/11/25 Unknown History Allergy/AdvReac Type Severity Reaction Status Date / Time No Known Allergies Allergy Verified 08/11/25 22:30 Family History no significant family his Surgical History no surgical history Social History Smoking Status: Never smoker ROS Constitutional Constitutional: Denies fatigue, fever(s), poor appetite, weight gain or weight loss Gastrointestinal Gastrointestinal: Denies belching, bloating, change in bowel habits, change in stool character, chewing difficulty, coffee ground emesis, constipation, cramping, diarrhea, dyspepsia, dysphagia, early satiety, excessive flatus, fecal incontinence, heartburn, hematemesis, hematochezia, hemorrhoids, loose stools, melena, nausea, odynophagia, rectal bleeding, tenesmus, vomiting or weight changes Physical Exam Const alert, oriented x3, no apparent distress and healthy appearing General Appearance: cooperative GI normal to inspection, nondistended, normoactive bowel sounds, soft to palpation, non-tender and non-distended Percussion: normal to percussion Rectal Exam: deferred Lab / Micro Data 08/13/25 03:44 08/13/25 03:44 Labs: Laboratory Results - last 24 hr 08/12/25 19:32: Sodium 136, Potassium 4.3, Chloride 103, Carbon Dioxide 24.5, Anion Gap 9, BUN 11, Creatinine 0.96, Estim Creat Clear Calc 83.34, Est GFR (MDRD) Non-Af 89, BUN/Creatinine Ratio 11.6, Glucose 194 H, Calcium 8.5, Total Bilirubin 2.22 H, AST 230 H, ALT 158 H, Alkaline Phosphatase 144 H, Total Protein 6.1, Albumin 3.4, Globulin 2.7, Albumin/Globulin Ratio 1.3 08/13/25 03:44: WBC 10.3, RBC 4.18 L, Hgb 12.8 L, Hct 37.3 L, MCV 89.2, MCH 30.6, MCHC 34.3, RDW Std Deviation 41.0, RDW Coeff of Griffin 12.5, Plt Count 229, MPV 9.8, Immature Gran % (Auto) 0.400, Neut % (Auto) 78.2 H, Lymph % (Auto) 9.8 L, [place] % (Auto) 11.4 H, Eos % (Auto) 0.1, Baso % (Auto) 0.1, Absolute Neuts (auto) 8.1 H, Absolute Lymphs (auto) 1.01, Nucleated RBC % 0, Sodium 140, Potassium 4.1, Chloride 105, Carbon Dioxide 26.4, Anion Gap 9, BUN 8, Creatinine 1.07, Estim Creat Clear Calc 74.78, Est GFR (MDRD) Non-Af 77, BUN/Creatinine Ratio 7.4 L, Glucose 153 H, Calcium 8.6, Total Bilirubin 1.39 H, AST 122 H, ALT 141 H, Alkaline Phosphatase 138 H, Total Protein 6.0, Albumin 3.4, Globulin 2.6, Albumin/Globulin Ratio 1.3 Imaging Radiology Impression Cholangiogram 08/12/25 14:00 IMPRESSION: Cholecystectomy with possible choledocholithiasis. Reading Location: [id number] Assessment & Plan Assessment/Plan (1) Acute cholecystitis: (2) Choledocholithiasis: (3) Bile leak: PLAN: The patient presents with symptoms and lab findings consistent with acute cholecystitis (gallbladder wall thickening and distension on CT), likely caused by cholelithiasis (sludge and stones seen during cholecystectomy). The elevated liver function tests (Total Bilirubin, AST, ALT, Alk Phos) suggest potential common bile duct obstruction or inflammation. The presence of biliary fluid in the ANGELA drain post-cholecystectomy indicates a probable bile leak, requiring urgent investigation and management via ERCP to prevent further complications such as biloma or biliary peritonitis. Plan * Proceed with therapeutic ERCP to investigate and address the suspected bile leak. * Goals of ERCP: * Cannulate the common bile duct. * Perform cholangiography to precisely localize the site of the bile leak. * Address the leak endoscopically, likely via biliary stent placement across the leak site to divert bile flow into the duodenum. * Consider sphincterotomy if indicated. * Continue post-operative monitoring, including drain output character and volume. * Administer appropriate pain management and supportive care. Charges/Coding Visit Charges Inpatient E&M: 48816 Init Hosp L3
[2025-08-13 21:33] VITALS: BP 148/73; PULSE 80; RESP 16; TEMP 37.2; O2SAT 92
[2025-08-14] VITALS (14 sets, daily range): BP systolic 112–156; BP diastolic 56–86; PULSE 70–88; RESP 12–18; TEMP 36.4–37.2; O2SAT 87–97; BMI 28.3; BMI 28.7
[2025-08-14] MEDS: Dextrose 5%/0.9% NaCl 1,000 ML 90 ML IV ×2 (02:40→18:34)
[2025-08-14 04:55] LABS: Hematocrit 34.6 % (40-54); Hemoglobin 11.7 g/dL (13.0-16.5); Immature Granulocytes Count 0.010 X10^3/uL (0.0-0.0); Mean Corp Hgb Conc 33.8 g/dL (32-36); Mean Corpuscular Volume 89.6 fL (80-94); Mean Platelet Vol. 9.5 fl (6.2-12.0); NRBC Flagged by Analyzer 0 % (0-5); Platelet Count 199 K/mm3 (150-450); RBC Distribution Width CV 12.9 % (11.6-14.6); RBC Distribution Width SD 42.7 fl (35.1-43.9); Red Blood Count 3.86 M/mm3 (4.6-6.2); White Blood Count 8.1 K/mm3 (4.4-11.0)
[2025-08-14] MEDS: Piperacil/Tazobactam 3.375 GM in 0.9% Normal Saline (50mL MB+) 50 ML IV ×3 (05:04→21:29)
[2025-08-14 05:30] LABS: AST(SGOT) 56 U/L (<=37); Alanine Aminotransfer ALT/SGPT 98 U/L (<=46); Albumin, Serum 3.2 g/dL (3.4-4.8); Alkaline Phosphatase 119 U/L (40-129); Anion Gap 8 (5-15); BUN 5 mg/dL (4-19); BUN/Creat Ratio 4.9 RATIO (10-20); Calcium,Total 8.1 mg/dL (7.6-11.0); Carbon Dioxide 25.0 mmol/L (21.0-32.0); Chloride 107 mmol/L (98-108); Estimated Creatinine Clearance 75.48 ml/min (50-250); Globulin 2.3 g/dL (2.2-4.2); Glucose 114 mg/dL (70-99); Potassium 3.8 mmol/L (3.3-5.1)
[2025-08-14] MEDS: Lactated Ringers 1,000 ML 15 ML IV (11:23)
--- NOTE | 2025-08-14 11:53 | PCM.PRE.AN2 ---
ASA Classification* ASA Classification ASA Classification: 1 Assessment & Plan Anesthesia* Anesthesia Assessment Anesthesia Assessment: Discussed sedation and/or anesthesia options, risks, benefits, and alternatives with patient/parents/legal guardian/POA. Questions invited. The patient/parents/legal guardian/POA seems to understand and agrees to proceed with anesthesia plan. Reviewed the physical assessment, medical history, allergy history and patient home medications list prior to surgery/procedure/anesthetic and documented any changes. Performed airway and anesthesia risk assessments. Anesthesia Type Anesthesia Type: General History Source History Obtained from:: Patient and Chart Anesthesia Focused Assessment* Temperature: 98.8 F Pulse Rate: 72 Blood Pressure: 141/83 Respiratory Rate: 18 Pulse Ox: 96 Oxygen Delivery Method: Nasal Cannula Oxygen Flow Rate (L/min): 2 Airway Assessment Mouth opens: >3 cm Mallampati Score: II Teeth Condition: Intact Neck Range of motion (ROM): Full ROM Labs Anesthesia Preop lab: CBC WBC, (4.4-11.0) 8.1 K/mm3 Today, 04:19 RBC, (4.6-6.2) 3.86 M/mm3 L Today, 04:19 Hgb, (13.0-16.5) 11.7 g/dL L Today, 04:19 Hct, (40-54) 34.6 % L Today, 04:19 Plt Count, (150-450) 199 K/mm3 Today, 04:19 CHEMISTRY Potassium, (3.3-5.1) 3.8 mmol/L Today, 04:19 Sodium, (133-145) 141 mmol/L Today, 04:19 BUN, (4-19) 5 mg/dL Today, 04:19 Creatinine, (0.70-1.20) 1.06 mg/dL Today, 04:19 Glucose, (70-99) 114 mg/dL H Today, 04:19 COAG Pre-Assessment Diagnosis/Proposed Procedure Planned Operative Procedure(s): Laparoscopic cholecystectomy Anesthesia History 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 When Was Last Pacemaker Check QUESTION #4 FULL TEXT: You/Your Family Experience fever (hyperthermia) with Anesthesia Last Oral Intake Last Oral intake: Last Oral Intake NPO since 07:00 08/14/25 11:17 Meds taken in AM with sips of No 08/14/25 08:15 water? Meds patient instructed to take am of surgery PONV PONV - first line production supervisor: PONV - first line production supervisor Female HX of Motion Sickness HX of N/V After Surgery Non-Smoker Duration of Surgery greater than 60 minutes Number of Risk Factors PONV Score Height & Weight Height & Weight: Anesthesia: Height & Weight Height 5 ft 9 in 08/14/25 11:17 Weight: 88.313 kg 08/14/25 11:17 Body Mass Index (BMI) 28.7 08/14/25 11:17 Respiratory Assessment Respiratory Assessment - first line production supervisor: Respiratory Tract Infection Hx - first line production supervisor Hx Respiratory Tract Infection No 08/14/25 02:35 STOP Sleep Apnea STOP Sleep Apnea - first line production supervisor: STOP Sleep Apnea - first line production supervisor Hx Hypertension No 08/12/25 01:59 Hx Sleep Apnea No 08/12/25 17:00 CPAP BIPAP Do you snore loudly (louder No 08/12/25 01:59 than talking or can be heard Do you often feel tired/ No 08/12/25 01:59 fatigued/ sleepy during daytime? Has anyone observed you stop No 08/12/25 01:59 breathing during sleep? STOP Results Negative 08/12/25 16:25 QUESTION #5 FULL TEXT : Do you snore loudly (louder than talking or can be heard through closed doors)? Tobacco Use History Tobacco Use History - first line production supervisor: Tobacco Use History - first line production supervisor Tobacco Use Smoking Status Never smoker 08/12/25 01:59 Hx Tobacco Use No 08/12/25 01:59 Years Smoking Packs Smoked per Day Smoking Cessation Date was within the last 15 years Hx Smoking Cessation Date Hx Smoking Cessation Counseling Hematologic Medial History Hematologic Hx - first line production supervisor: Hematologic Medical Hx - analytical engineer Hx of Blood Transfusion No 08/12/25 01:59 Hx of Transfusion in last 3 No 08/12/25 01:59 Months Date of Last Transfusion (if within last 3 months) Ever experience any problems No 08/12/25 01:59 with transfusion(s)? Specify any problems Hx of Preganancy in last 3 N/A 08/12/25 01:59 Months Nurse Filling Out Transfusion CSIGNORIN 08/12/25 01:59 & Questions: Date: 08/12/25 08/12/25 01:59 Time: 02:01 08/12/25 01:59 Patient unable to answer at this time (ie. confused, unrespo /Reproduction History /Reproductive History - first line production supervisor: /Reproductive Hx- first line production supervisor Hx Now No 08/12/25 11:14 Gestational Age (in weeks): EDC: Hx Hx Para Hx Section SAB Does the father of the baby or his family experience fever w Father of the baby Malignant Hypertension history comment Active Medications Active Medications: Current Medications Generic Name Dose Route Start Last Admin Trade Name Freq PRN Reason Stop Dose Admin Acetaminophen 1,000 mg 08/12/25 06:00 08/14/25 05:04 Acetaminophen 500 Mg Tablet PO 1,000 mg Q8 BRODY Administration Dextrose/Sodium Chloride 1,000 mls @ 90 mls/hr 08/12/25 01:41 08/14/25 02:40 Dextrose 5%/0.9% Nacl IV 90 mls/hr .[id number] BRODY Administration Piperacillin Sod/Tazobactam 50 mls @ 12.5 mls/hr 08/12/25 06:00 08/14/25 09:04 Sod 3.375 gm/ Sodium Chloride IV Infused Q8 BRODY Infusion Sodium Chloride 250 mls @ 15 mls/hr 08/12/25 01:42 IV .[id number] PRN Saline Flush Sodium Chloride 250 mls @ 15 mls/hr 08/12/25 01:42 IV .[id number] PRN Additional IVPB Infusion Lactated Ringer's 1,000 mls @ 15 mls/hr 08/14/25 11:30 08/14/25 11:23 IV 15 mls/hr .Q48H BRODY Administration Morphine Sulfate 2 - 4 mg 08/12/25 01:41 08/13/25 06:19 Morphine 2 Mg/Ml Syringe IV 4 mg Q3H PRN PRN Administration Pain Score 6-10 Morphine Sulfate 2 - 4 mg 08/12/25 01:44 Morphine 4 Mg/Ml Syringe IV Q3H PRN PRN Pain Score 6-10 Ondansetron HCl 4 mg 08/12/25 01:41 08/13/25 06:19 Ondansetron 4 Mg/2 Ml Vial IV 4 mg Q8H PRN PRN Administration NAUSEA/VOMITING Oxycodone HCl 5 mg 08/12/25 01:41 08/13/25 19:11 Oxycodone 5 Mg Tablet PO 5 mg Q4H PRN PRN Administration Pain Score 4-10 Sodium Chloride 10 - 40 ml 08/12/25 01:42 0.9% Saline Lock 10 Ml Syringe IV UD PRN SALINE FLUSH PFSH Medical History Psoriasis Home Medications ?Medication ?Instructions ?Recorded ?Last Taken ?Type NK 08/11/25 Unknown History Allergy/AdvReac Type Severity Reaction Status Date / Time No Known Allergies Allergy Verified 08/14/25 11:15 Family History no significant family his Surgical History no surgical history Social History Smoking Status: Never smoker Review of Systems (Anesthesia) ROS Narrative System reviewed and no additional complaints, except as documented. Physical Exam Const alert, oriented x3 and average body habitus Resp normal respiratory effort, normal air movement and clear to auscultation bilaterally Cardio regular rate, regular rhythm and no murmurs; Negative for diaphoretic
--- NOTE | 2025-08-14 13:30 | RAD_ITS ---
PROCEDURE: ERCP BILIARY/PANCREAS 08/14/2025 REASON FOR EXAM: ERCP TECHNIQUE: Procedure Code: RADERCP Modality: DX Procedure: ERCP BILIARY/PANCREAS. Intraoperative fluoroscopic services provided for ERCP. For velocity: 1 minute and 8 seconds. Radiation dose: 21.2 mGy. COMPARISON: None FINDINGS: Intraoperative fluoroscopic services provided for ERCP. The intra and extrahepatic biliary ducts are unremarkable. A biliary stent was placed. RAD/ERCP Biliary/Pancreas IMPRESSION: Biliary stent placement Reading Location: [facility] [place]-
--- NOTE | 2025-08-14 14:02 | PN.SURG_ITS ---
Subjective Subjective Attempted to see patient on on the floor however patient was down getting ERCP. I remained present for much of the ERCP procedure. Please see Dr. Narayanan's notes for description of ERCP and stent placement procedure Objective Data Objective Data Vital Signs: Vital Signs Temp Pulse Resp BP Pulse Ox O2 Del Method O2 Flow Rate 98.8 F 72 18 141/83 H 96 Nasal Cannula 2 08/14/25 11:55 08/14/25 11:55 08/14/25 11:55 08/14/25 11:55 08/14/25 11:55 08/14/25 11:55 08/14/25 11:55 Oxygen Flow Rate (L/min) 2 Oxygen Delivery Method Nasal Cannula Weight: 194 lb 11.148 oz Body Mass Index (BMI) 28.7 Intake & Output: Intake and Output for Last 24 Hours 08/12/25 08/13/25 08/14/25 23:59 23:59 23:59 Intake Total 3019.5 / 3019.5 3250.75 / 3250.75 1069 / 1069 Output Total 80 / 80 0 / 2059 120 / 120 Balance 2939.5 / 2939.5 1190.75 / 1190.75 949 / 949 Lab / Micro Data 08/14/25 04:19 08/14/25 04:19 Labs: Laboratory Results - last 24 hr 08/14/25 04:19: WBC 8.1, RBC 3.86 L, Hgb 11.7 L, Hct 34.6 L, MCV 89.6, MCH 30.3, MCHC 33.8, RDW Std Deviation 42.7, RDW Coeff of Griffin 12.9, Plt Count 199, MPV 9.5, Immature Gran % (Auto) 0.100, Neut % (Auto) 64.7, Lymph % (Auto) 21.4, [place] % (Auto) 10.8 H, Eos % (Auto) 2.5, Baso % (Auto) 0.5, Absolute Neuts (auto) 5.2, Absolute Lymphs (auto) 1.73, Nucleated RBC % 0, Sodium 141, Potassium 3.8, Chloride 107, Carbon Dioxide 25.0, Anion Gap 8, BUN 5, Creatinine 1.06, Estim Creat Clear Calc 75.48, Est GFR (MDRD) Non-Af 78, BUN/Creatinine Ratio 4.9 L, G lucose 114 H, Calcium 8.1, Total Bilirubin 0.78, AST 56 H, ALT 98 H, Alkaline Phosphatase 119, Total Protein 5.5 L, Albumin 3.2 L, Globulin 2.3, Albumin/Globulin Ratio 1.4 Physical Exam Narrative Patient currently undergoing ERCP Assessment & Plan Assessment/Plan (1) Choledocholithiasis: (2) Acute cholecystitis: (3) Bile leak: PLAN: Plan The patient is a 65-year-old male status post a recent laparoscopic cholecystectomy with intraoperative cholangiograms. Patient found to have debris within the common bile duct seen at time of IOC. ERCP and stent placement performed today successfully. Patient with bilious drainage in ANGELA drain following surgery consistent with small cystic duct leak seen at the time of ERCP. Will plan to keep ANGELA drain in place until output has decreased to below 20 cc and once we have confirmed that no further bilious drainage is noted from ANGELA drain. Continue antibiotics. Can resume diet. Will we will reassess tomorrow to determine discharge planning Appreciate GI input and procedure today
--- NOTE | 2025-08-14 14:23 | PCM.POST.ANE ---
Anesthesia: Postop Eval I Current Vital Signs Temperature: 98.4 F Pulse Rate: 74 Blood Pressure: 112/56 Respiratory Rate: 16 Pulse Ox: 96 Oxygen Delivery Method: Nasal Cannula Oxygen Flow Rate (L/min): 2 Assessment Airway patent: Yes Spontaneous unlabored respirations: Yes Mental status: Awake and Calm nausea: No Vomiting: No Anesthesia Complication: No Fluid Hydration Crystalloid volume administer (ml): 1,400 Total IV fluid infused: 1,400 Progress Note Anesthesia document: Postop Eval 1 completed: Yes
--- NOTE | 2025-08-14 16:33 | PCM.POSTANE2 ---
Anesthesia Postop Eval I Sum Postop Eval Completion status Anesthesia document: Postop Eval 1 completed: Yes Anesthesia Postop Eval I Summary Anesthesia Postop Eval I Summary: Anesthesia Postop Eval I: Assessment Summary Airway patent Yes 08/14/25 14:25 [email or web address] Spontaneous unlabored Yes 08/14/25 14:25 [email or web address] respirations Mental status Awake,Calm 08/14/25 14:25 [email or web address] nausea No 08/14/25 14:25 [email or web address] Vomiting No 08/14/25 14:25 [email or web address] Anesthesia Postop Eval I: Fluid Summary Crystalloid volume administer 1,400 08/14/25 14:25 [email or web address] (ml) Colloids volume administered ( ml) Blood Product volume administered (ml) Total IV fluid infused 1,400 08/14/25 14:25 [email or web address] Anesthesia Postop Eval I: Summary Notes Anesthesia Complication No 08/14/25 14:25 [email or web address] Anesthesia Complication Comment: Post-operative progress note Doing very well in 08/12/25 16:31 PACU. Denies any complaints. Denies pain. Anesthesia: Postop Eval II Evaluation Mental status: Awake Pain Level: 0 nausea: No Vomiting: No Complications Anesthesia Complication: No
--- NOTE | 2025-08-14 16:35 | ANES.CONFIRM ---
Anesthesia: Confirm Documents Multiple Procedures on Account (2) Confirmed Documents: Yes
--- NOTE | 2025-08-14 16:43 | OP.PROVAT_ITS ---
08/14/2025 No Primary Care Physician Re : ERCP procedure for Stephen Montiel Dear Care Physician This procedure was performed on Thursday, August 14, 2025. My impressions and recommendations are as follows: Impressions : - The entire main bile duct was dilated, acquired. - A bile leak was found. - The patient has had a cholecystectomy. - Choledocholithiasis was found. Complete removal was accomplished by biliary sphincterotomy and balloon extraction. - A biliary sphincterotomy was performed. - The biliary tree was swept. - One temporary stent was placed into the common bile duct. Recommendations : My findings are described in the full procedure note, which is enclosed. If I can be of further assistance, please feel free to contact me at . Sincerely, Jeevan Narayanan, 08/14/2025 4:42:58 PM This report has been signed electronically.
--- NOTE | 2025-08-14 16:43 | OP.ERCP_ITS ---
Patient Name: Stephen Montiel Procedure Date: 08/14/2025 12:26 PM Date of : 1960 Age: 65 Procedure: ERCP Indications: Bile duct stone(s), Suspected bile leak Providers: Jeevan Narayanan DO Medicines: General Anesthesia Patient Profile: This is a 65 year old male. Refer to note in patient chart for documentation of history and physical. Patient has symptoms of acute right upper quadrant abdominal pain and acute jaundice. This patient has no history of previous ERCP. He is status post laparoscopic cholecystectomy recently. Complications: No immediate complications. Procedure: Pre-Anesthesia Assessment: - Prior to the procedure, a History and Physical was performed, and patient medications and allergies were reviewed. The patient is competent. The risks and benefits of the procedure and the sedation options and risks were discussed with the patient. All questions were answered and informed consent was obtained. Patient identification and proposed procedure were verified by the physician. Mental Status Examination: normal. Airway Examination: normal oropharyngeal airway and neck mobility. Respiratory Examination: clear to auscultation. CV Examination: normal. Prophylactic Antibiotics: The patient does not require prophylactic antibiotics. Prior Anticoagulants: The patient has taken no anticoagulant or antiplatelet agents. ASA Grade Assessment: II - A patient with mild systemic disease. After reviewing the risks and benefits, the patient was deemed in satisfactory condition to undergo the procedure. The anesthesia plan was to use general anesthesia. Immediately prior to administration of medications, the patient was re-assessed for adequacy to receive sedatives. The heart rate, respiratory rate, oxygen saturations, blood pressure, adequacy of pulmonary ventilation, and response to care were monitored throughout the procedure. The physical status of the patient was re-assessed after the procedure. After obtaining informed consent, the scope was passed under direct vision. Throughout the procedure, the patient's blood pressure, pulse, and oxygen saturations were monitored continuously. The Duodenoscope was introduced through the mouth, and advanced to the duodenum and used to inject contrast into the bile duct. The ERCP was accomplished without difficulty. The patient tolerated the procedure well. Scope In: 1:34:33 PM Scope Out: 1:51:38 PM Total Procedure Duration Time 0 hours 17 minutes 5 seconds Findings: The [facility] film was normal. The esophagus was successfully intubated under direct vision. The scope was advanced to a normal major papilla in the descending duodenum without detailed examination of the pharynx, larynx and associated structures, and upper GI tract. The upper GI tract was grossly normal. The bile duct was deeply cannulated with the short-nosed traction sphincterotome. Contrast was injected. I personally interpreted the bile duct images. Ductal flow of contrast was adequate. Image quality was adequate. Contrast extended to the entire biliary tree. Opacification of the entire opacified area and entire biliary tree was successful. The maximum diameter of the ducts was 10 mm. The lower third of the main bile duct contained one stone, which was 5 mm in diameter. The main bile duct was diffusely dilated, acquired. The largest diameter was 9 mm. A cholecystectomy had been performed. A long 0.025 inch Jagwire was passed into the biliary tree. A 5 mm biliary sphincterotomy was made with a traction (standard) sphincterotome using ERBE electrocautery. The sphincterotomy oozed blood. The biliary tree was swept with a 12 mm balloon starting at the bifurcation, left intrahepatic duct(s), left main hepatic duct, right intrahepatic duct(s) and right main hepatic duct. Sludge was swept from the duct. All stones were removed. The heart rate, respiratory rate, oxygen saturations, blood pressure, adequacy of pulmonary ventilation, and response to care were monitored throughout the procedure. The physical status of the patient was re-assessed after the procedure. The patient tolerated the procedure well. The bile duct was deeply cannulated with the short-nosed traction sphincterotome. Contrast was injected. Extravasation of contrast originating from the cystic duct was observed. One 10 Fr by 7 cm temporary stent was placed 5 cm into the common bile duct. Bile flowed through the stent. The stent was in good position. Impression: - The entire main bile duct was dilated, acquired. - A bile leak was found. - The patient has had a cholecystectomy. - Choledocholithiasis was found. Complete removal was accomplished by biliary sphincterotomy and balloon extraction. - A biliary sphincterotomy was performed. - The biliary tree was swept. - One temporary stent was placed into the common bile duct. Procedure Code(s): --- Professional --- 15656, Endoscopic retrograde cholangiopancreatography (ERCP); with placement of endoscopic stent into biliary or pancreatic duct, including pre- and post-dilation and guide wire passage, when performed, including sphincterotomy, when performed, each stent [id number], Endoscopic retrograde cholangiopancreatography (ERCP); with removal of calculi/debris from biliary/pancreatic duct(s) 99340, 26, Endoscopic catheterization of the biliary ductal system, radiological supervision and interpretation CPT copyright 2021 [employer]. All rights reserved. The codes documented in this report are preliminary and upon four h club agent review may be revised to meet current compliance requirements. Jeevan Narayanan DO 08/14/2025 4:42:58 PM This report has been signed electronically. Number of Addenda: 0 Note Initiated On: 08/14/2025 12:26 PM
[2025-08-15 03:11] VITALS: BP 140/76; PULSE 78; RESP 16; TEMP 36.8; O2SAT 95
[2025-08-15] MEDS: Piperacil/Tazobactam 3.375 GM in 0.9% Normal Saline (50mL MB+) 50 ML IV (05:22)
[2025-08-15] MEDS: Dextrose 5%/0.9% NaCl 1,000 ML 90 ML IV (06:31)
[2025-08-15 07:42] VITALS: BP 161/84; PULSE 77; RESP 18; TEMP 36.2; O2SAT 94
[2025-08-15 08:30] LABS: Hematocrit 36.2 % (40-54); Hemoglobin 12.6 g/dL (13.0-16.5); Immature Granulocytes Count 0.020 X10^3/uL (0.0-0.0); Mean Corp Hgb Conc 34.8 g/dL (32-36); Mean Corpuscular Volume 88.5 fL (80-94); Mean Platelet Vol. 9.4 fl (6.2-12.0); NRBC Flagged by Analyzer 0 % (0-5); Platelet Count 221 K/mm3 (150-450); RBC Distribution Width CV 12.5 % (11.6-14.6); RBC Distribution Width SD 40.7 fl (35.1-43.9); Red Blood Count 4.09 M/mm3 (4.6-6.2); White Blood Count 8.5 K/mm3 (4.4-11.0)
[2025-08-15 09:07] LABS: AST(SGOT) 100 U/L (<=37); Alanine Aminotransfer ALT/SGPT 117 U/L (<=46); Albumin, Serum 3.3 g/dL (3.4-4.8); Alkaline Phosphatase 155 U/L (40-129); Anion Gap 9 (5-15); BUN 7 mg/dL (4-19); BUN/Creat Ratio 6.8 RATIO (10-20); Calcium,Total 8.6 mg/dL (7.6-11.0); Carbon Dioxide 25.7 mmol/L (21.0-32.0); Chloride 106 mmol/L (98-108); Estimated Creatinine Clearance 74.60 ml/min (50-250); Globulin 2.8 g/dL (2.2-4.2); Glucose 118 mg/dL (70-99); Potassium 3.7 mmol/L (3.3-5.1)
--- NOTE | 2025-08-15 11:31 | PCM.PN.SRG ---
Subjective Subjective Patient seen and evaluated on rounds this morning. Patient doing very well. He denies any significant issues or problems. He states he is feeling good and is hoping to be able to go home today. He denies any fevers or chills. Objective Data Objective Data Vital Signs: Vital Signs Temp Pulse Resp BP Pulse Ox O2 Del Method O2 Flow Rate 97.1 F L 77 18 161/84 H 94 Room Air 2 08/15/25 07:42 08/15/25 07:42 08/15/25 07:42 08/15/25 07:42 08/15/25 07:42 08/15/25 07:42 08/14/25 15:16 Oxygen Flow Rate (L/min) 2 Oxygen Delivery Method Room Air Weight: 194 lb 11.148 oz Body Mass Index (BMI) 28.7 Intake & Output: Intake and Output for Last 24 Hours 08/13/25 08/14/25 08/15/25 23:59 23:59 23:59 Intake Total 3250.75 / 3250.75 3740.25 / 3740.25 1100 / 1100 Output Total 2060 / 2060 1162 / 1162 20 / 20 Balance 1190.75 / 1190.75 2578.25 / 2578.25 1080 / 1080 Lab / Micro Data 08/15/25 08:15 08/15/25 08:15 Labs: Laboratory Results - last 24 hr 08/15/25 08:15: WBC 8.5, RBC 4.09 L, Hgb 12.6 L, Hct 36.2 L, MCV 88.5, MCH 30.8, MCHC 34.8, RDW Std Deviation 40.7, RDW Coeff of Griffin 12.5, Plt Count 221, MPV 9.4, Immature Gran % (Auto) 0.200, Neut % (Auto) 69.8, Lymph % (Auto) 19.9, [place] % (Auto) 8.7, Eos % (Auto) 0.8, Baso % (Auto) 0.6, Absolute Neuts (auto) 5.9, Absolute Lymphs (auto) 1.68, Nucleated RBC % 0, Sodium 141, Potassium 3.7, Chloride 106, Carbon Dioxide 25.7, Anion Gap 9, BUN 7, Creatinine 1.10, Estim Creat Clear Calc 74.60, Est GFR (MDRD) Non-Af 75, BUN/Creatinine Ratio 6.8 L, Glucose 118 H, Calcium 8.6, Total Bilirubin 1.07, AST 100 H, ALT 117 H, Alkaline Phosphatase 155 H, Total Protein 6.1, Albumin 3.3 L, Globulin 2.8, Albumin/Globulin Ratio 1.2 Radiography Diagnostic Testing: Radiology Impression Endo Retro Cholangiopancreatogram 08/14/25 13:30 IMPRESSION: Biliary stent placement Reading Location: [place] [id number] Physical Exam Narrative He is alert and oriented x 3. He is in no acute distress. Abdomen is soft, nondistended. Appropriate tenderness to palpation. ANGELA drain in place and putting out serosanguineous output. No bilious tinge to the fluid Assessment & Plan Assessment/Plan (1) Bile leak: (2) Choledocholithiasis: (3) Psoriasis: (4) Nausea and vomiting: (5) Acute cholecystitis: PLAN: Plan The patient is a 65-year-old male status post a recent laparoscopic cholecystectomy with intraoperative cholangiograms for acute on chronic cholecystitis/cholelithiasis. He was found to have choledocholithiasis on cholangiograms. He also exhibited some bilious drainage on postoperative day #1 concerning for bile leak. ERCP and stent placement was performed yesterday to evacuate the debris within the common bile duct and to place a stent which addressed the bile leak as well as the common bile duct debris which was mostly sludge and some small fine gallstones. Patient is doing great this morning and wishes to go home. I think that this is appropriate Will discharge to home. I instructed him to contact my office and schedule an appointment for next week to have the drain removed. He is to also follow-up with Dr. Narayanan in office to discuss stent removal when appropriate
--- NOTE | 2025-08-15 11:34 | DS.PCM_ITS ---
Providers Date of Admission: 08/12/25 Date of Discharge: 08/15/25 Primary Care Physician: Eunice [facility] Consultations 08/12/25 17:00 Consult: Gastroenterology Routine Consulting Provider: [facility] Reason for Consult: probable CBD stones on IOC EMERGENT Consult: No MD Notified: Yes Date Notified: 08/12/25 Time Notified: 17:00 Method of Notification: Verbal Reason For Visit: CHOLECYSTITIS Diagnosis Discharge Diagnosis (1) Bile leak: Status: Acute Code(s): K83.9 - Disease of biliary tract, unspecified (2) Choledocholithiasis: Status: Acute Code(s): K80.50 - Calculus of bile duct without cholangitis or cholecystitis without obstruction (3) Psoriasis: Status: Acute Code(s): L40.9 - Psoriasis, unspecified (4) Nausea and vomiting: Status: Acute Code(s): R11.2 - Nausea with vomiting, unspecified (5) Acute cholecystitis: Status: Acute Code(s): K81.0 - Acute cholecystitis Plan The patient is a 65-year-old male status post a recent laparoscopic cholecystectomy with intraoperative cholangiograms for acute on chronic cholecystitis/cholelithiasis. He was found to have choledocholithiasis on cholangiograms. He also exhibited some bilious drainage on postoperative day #1 concerning for bile leak. ERCP and stent placement was performed yesterday to evacuate the debris within the common bile duct and to place a stent which addressed the bile leak as well as the common bile duct debris which was mostly sludge and some small fine gallstones. Patient is doing great this morning and wishes to go home. I think that this is appropriate Will discharge to home. I instructed him to contact my office and schedule an appointment for next week to have the drain removed. He is to also follow-up with Dr. Narayanan in office to discuss stent removal when appropriate Medications at Discharge Home Medications oxycodone 5 mg tablet 5 mg PO Q8H PRN pain 3 days #7 tabs 08/15/25 Hospital Course Operations cholecystecomy and ERCP Procedures EKG and Intubation Summary of Care Provided Minutes Spent on Discharge: 15 Physical Exam Const alert and oriented x3 Weight / BMI Weight Weight: 194 lb 11.148 oz Body Mass Index (BMI) 28.7 ABG / Lab / Microbiology Data 08/15/25 08:15 08/15/25 08:15 Laboratory: Laboratory Results - last 24 hr 08/15/25 08:15: WBC 8.5, RBC 4.09 L, Hgb 12.6 L, Hct 36.2 L, MCV 88.5, MCH 30.8, MCHC 34.8, RDW Std Deviation 40.7, RDW Coeff of [place] 12.5, Plt Count 221, MPV 9.4, Immature Gran % (Auto) 0.200, Neut % (Auto) 69.8, Lymph % (Auto) 19.9, [place] % (Auto) 8.7, Eos % (Auto) 0.8, Baso % (Auto) 0.6, Absolute Neuts (auto) 5.9, Absolute Lymphs (auto) 1.68, Nucleated RBC % 0, Sodium 141, Potassium 3.7, Chloride 106, Carbon Dioxide 25.7, Anion Gap 9, BUN 7, Creatinine 1.10, Estim Creat Clear Calc 74.60, Est GFR (MDRD) Non-Af 75, BUN/Creatinine Ratio 6.8 L, G lucose 118 H, Calcium 8.6, Total Bilirubin 1.07, AST 100 H, ALT 117 H, Alkaline Phosphatase 155 H, Total Protein 6.1, Albumin 3.3 L, Globulin 2.8, Albumin/Globulin Ratio 1.2 Radiography Diagnostic Testing: Radiology Impression Endo Retro Cholangiopancreatogram 08/14/25 13:30 IMPRESSION: Biliary stent placement Reading Location: [place] [id number] D/C Instructions Discharge Activity: May Shower Lifting Restrictions: No lifting pushing or pulling more than 20 pounds for 3 to 4 weeks Call your doctor if your incision/area has: Continuous Slow Oozing, Sudden Increased Bleeding, Increased Pain/ Swelling, Increased Redness, Foul Smelling Discharge and Swelling at the incision site Call your doctor if you observe: Fever of 101 or Higher Cleanse incision/area with: Soap & Water DC O2, CPAP, BIPAP Needs Home O2 Discharge instructions: No DC home with Oxygen: No Please Follow Up With: Harsha Odonnell MD When: 1 week. Please call office to schedule appointment to have drain removed Meaningful Use Info Meaningful Use Meaningful Use Diagnoses (Choose all that apply): None applicable Discharge Plan Admission Admit Date/Time: 08/12/25 00:59 Primary Reason for Your Visit: Cholecystitis/cholelithiasis/choledocholithiasis Attending Provider: Harsha Odonnell Primary Care Provider: Care Physician,No Primary Consulting Providers: Jeevan Narayanan; Nkechi Avila; Tali Fernando; Nicole Slater; Harsha Odonnell Discharge Orders/Prescriptions Prescriptions: New oxycodone 5 mg tablet 5 mg PO Q8H PRN (Reason: pain) 3 Days Qty: 7 0RF Referrals / Follow Up: Care Physician,No Primary [Primary Care Provider, Medical]
[2025-08-15 13:17] VITALS: BP 156/72; PULSE 89; RESP 18; TEMP 36.7; O2SAT 95
== END 2025-08-15 13:32 | disposition home or self-care (01) | DRG 418 ==
LOC: ED 08-12 00:56 → MS3 08-12 03:00
PROVIDERS: Internal Medicine Gastroenterology; Admitting Provider Surgery; Emergency Provider Emergency Medicine; Visit Provider Surgery
PROC: 0FT44ZZ Resection of Gallbladder, Percutaneous Endoscopic Approach (ICD-10-PCS; CPT 47610; principal; 2025-08-12 12:00)
PROC: 0FC98ZZ Extirpation of Matter from Common Bile Duct, Via Natural or Artificial Opening Endoscopic (ICD-10-PCS; CPT 43260; principal; 2025-08-14 11:55)
DX: K80.66 Calculus of gallbladder and bile duct with acute and chronic cholecystitis without obstruction (principal); K91.89 Other postprocedural complications and disorders of digestive system; K42.9 Umbilical hernia without obstruction or gangrene; L40.9 Psoriasis, unspecified; K83.8 Other specified diseases of biliary tract; Y83.8 Other surgical procedures as the cause of abnormal reaction of the patient, or of later complication, without mention of misadventure at the time of the procedure
CPT/HCPCS: 36415; 74177; 74300; 74330; 76000; 80048; 80053; 80076; 83605; 83690; 85025; 88304; 93005; 99283; C2625; Q9967; A4216; C1769; J2405